=== PATIENT | female | born 2000 | race American Indian/Alaskan Native ===

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

== ENCOUNTER 2021-11-16 19:44 | Emergency (ER) | payer MEDICAID, OTHER, SELFPAY ==
[2021-11-16 20:03] VITALS: BP 139/78; PULSE 78; RESP 20; TEMP 36.6; O2SAT 98
--- NOTE | 2021-11-16 20:12 | DI.RAD.S_ITS ---
PROCEDURE: XR ANKLE RT MIN 3V INDICATIONS: rolled ankle TECHNIQUE: 3 views of the ankle were acquired. COMPARISON: None. FINDINGS: Bones: No fracture or dislocation. Ankle mortise demonstrates preserved alignment. Soft tissues: There is a small joint effusion. Soft tissue swelling is demonstrated laterally. Achilles tendon appears normal. IMPRESSION: 1. No fracture or dislocation. Dictated by: Benson Concepcion M.D. on 11/16/2021 at 21:03 Approved by: Benson Concepcion M.D. on 11/16/2021 at 21:15
--- NOTE | 2021-11-16 22:27 | ED.LOWEXIN ---
HPI - Extremity Injury (Lower) General Chief Complaint: Extremity Injury, Lower Stated Complaint: RT ANKLE INJURY Time Seen by Provider: 11/16/21 22:27 Source: patient Mode of arrival: Wheelchair History of Present Illness HPI Narrative: 21 year old Female who presents with right ankle pain. She tripped over a hose earlier this evening unable to bear weight. She is tender on the lateral side. No numbness tingling or weakness. Related Data Allergies Allergy/AdvReac Type Severity Reaction Status Date / Time No Known Drug Allergies Allergy Unverified 07/03/18 15:42 Review of Systems Review of Systems Narrative: GENERAL: Denies chills,fever HEENT: Denies throat pain RESPIRATORY: Denies dyspnea, cough, wheezing CARDIOVASCULAR: Denies chest pain, palpitations GASTROINTESTINAL: Denies nausea, vomiting MUSCULOSKELETAL: See HPI SKIN: No rash, no laceration, no pruritus NEUROLOGIC: Denies weakness, dizziness, headache, numbness 8 point review of systems is negative except for those stated above and HPI Patient History Social History details: LAHW mom, dad, siblings age (19, 18, 11, 4mo), outdoor cat, smokers outside Smoking Status: Never smoker Smoking Status: Never smoker Exam Initial Vital Signs Initial Vital Signs: Vital Signs Temperature 98 F 11/16/21 20:03 Pulse Rate 78 11/16/21 20:03 Respiratory Rate 20 11/16/21 20:03 Blood Pressure 139/78 11/16/21 20:03 Pulse Oximetry 98 11/16/21 20:03 GENERAL: Well-appearing, well-nourished and in no acute distress. CARDIOVASCULAR: peripheral pulses in tact, cap refill <2 sec RESPIRATORY: No respiratory distress, speaks in full sentences without difficulty EXTREMITIES: Normal range of motion, no clubbing or edema. Neurovascularly intact Right ankle tender and swollen over the lateral malleoli the ankle is stable Achilles intact distal pedal pulse intact. NEUROLOGICAL: Cranial nerves II through XII grossly intact. Normal gait and speech. SKIN: Warm, dry, no petechiae, no rashes or lesions. Course Orders Ordered: ED Orders 11/16/21 20:12 XR ankle RT min 3V Stat Vital Signs Vital signs: Vital Signs - 8 hr 11/16/21 20:03 Temperature 98 F Pulse Rate 78 Respiratory Rate 20 Blood Pressure 139/78 Pulse Oximetry 98 MDM - Extremity Injury (Lower) Imaging Data Extremity x-ray #1: Radiologist's Impression: PROCEDURE:? XR ANKLE RT MIN 3V ? INDICATIONS:? rolled ankle ? TECHNIQUE:? 3 views of the ankle were acquired.? ? COMPARISON:? None. ? FINDINGS:? ? Bones:? No fracture or dislocation.? Ankle mortise demonstrates preserved alignment. ? Soft tissues:? There is a small joint effusion.? Soft tissue swelling is demonstrated laterally.? Achilles tendon appears normal.? ? IMPRESSION:? ? 1. No fracture or dislocation.? ? ? Dictated by: Benson Concepcion M.D. on 11/16/2021 at 21:03 ? ? MDM Narrative Medical decision making narrative: Patient has some mild swelling she is given crutches and instructed on home care. Discharge Plan Departure Patient Disposition: Home Clinical Impression: Right ankle sprain Instructions: DI for Ankle Sprain Activity Restrictions/Additional Instructions: *You have been diagnosed with right ankle sprain *What to do: Use crutches as needed. The Randall wrap if it feels better. May weightbear as tolerated. Ice 20-30 minutes at a time *Continue to take medications as directed Ibuprofen 600 mg every 6-8 hours if needed for [id number] pain *Follow up with your primary care provider in 2-3 days or call [phone] *Return to ER if you should have increasing pain swelling or any new, worsening or concerning symptoms
== END 2021-11-16 23:24 | disposition home or self-care (01) ==
PROVIDERS: Emergency Provider Emergency Medicine
DX: S93.401A Sprain of unspecified ligament of right ankle, initial encounter (principal); W01.0XXA Fall on same level from slipping, tripping and stumbling without subsequent striking against object, initial encounter
CPT/HCPCS: 73610; 99283

== ENCOUNTER 2023-04-22 19:21 | Emergency (ER) | payer MEDICAID, OTHER, SELFPAY ==
[2023-04-22 19:24] VITALS: BP 133/63; PULSE 95; RESP 18; TEMP 36.8; O2SAT 100
--- NOTE | 2023-04-22 19:46 | ED.ANIMALBIT ---
HPI - Animal Bite General Chief Complaint: Animal Bite Stated Complaint: Dog bite Time Seen by Provider: 04/22/23 19:43 Source: patient Mode of arrival: Ambulatory History of Present Illness HPI narrative: Patient is a 22-year-old female who earlier today was bit on the back of the right ankle by a dog. She states she does not know the heating equipment installer of the dog but it was a domesticated dog. Patient states she is not up-to-date on her tetanus. Related Data Allergies Allergy/AdvReac Type Severity Reaction Status Date / Time No Known Drug Allergies Allergy Unverified 07/03/18 15:42 Review of Systems Musculoskeletal Musculoskeletal: Reports system reviewed and no additional complaints, except as documented Integumentary/Breasts Skin/Breast: Reports system reviewed and no additional complaints, except as documented Patient History Social History details: LAHW mom, dad, siblings age (19, 18, 11, 4mo), outdoor cat, smokers outside Smoking Status: Never smoker Smoking Status: Never smoker Substance Use Type: does not use Exam Initial Vital Signs Initial Vital Signs: Vital Signs Temperature 98.3 F 04/22/23 19:24 Pulse Rate 95 H 04/22/23 19:24 Respiratory Rate 18 04/22/23 19:24 Blood Pressure 133/63 04/22/23 19:24 Pulse Oximetry 100 04/22/23 19:24 Oxygen Delivery Method Room Air 04/22/23 19:24 Skin Other: Very superficial abrasion to the back of the right ankle. There is no bleeding. There are no breaks in the skin other than superficial abrasion Neuro Sensory Exam: no sensory deficits noted Extrem General: normal to inspection Course Orders Ordered: Discontinued Medications Bacitracin (Bacitracin Oint 0.9 Gm Pckt) 1 applic TOP NOW ONE Stop: 04/22/23 19:47 Diphtheria/Tetanus/Acell Pertussis (Tet,Diph,Pertuss(Acell),Vac/Pf 0.5 Ml Syringe) 0.5 ml IM .ONCE ONE Stop: 04/22/23 19:32 Last Admin: 04/22/23 19:51 Dose: 0.5 ml Documented By: LIV Vital Signs Vital signs: Vital Signs - 8 hr 04/22/23 19:24 Temperature 98.3 F Pulse Rate 95 H Respiratory Rate 18 Blood Pressure 133/63 Pulse Oximetry 100 Oxygen Delivery Method Room Air MDM - Animal Bite MDM Narrative Medical decision making narrative: Very superficial abrasion. No puncture coburn. No indication for x-rays. Her tetanus was updated. No indication for rabies. No indication for antibiotics other than topical. Provided reassurance the patient. She was given return precautions. She expressed understanding and agreement. Discharge Plan Departure Patient Disposition: Home Clinical Impression: Bite by animal Instructions: DI for Dog Bite Activity Restrictions/Additional Instructions: Your tetanus was updated today. You can continue to put topical antibiotic ointment over the area. You can shower like normal. Return to the emergency department for new symptoms. Stand Alone Forms: Patient Portal/API
[2023-04-22] MEDS: TET,DIPH,PERTUSS(ACELL),VAC/PF 0.5 ML SYRINGE IM (19:51)
== END 2023-04-22 20:02 | disposition home or self-care (01) ==
PROVIDERS: Emergency Provider Emergency Medicine
DX: S91.051A Open bite, right ankle, initial encounter (principal); W54.0XXA Bitten by dog, initial encounter; Z23 Encounter for immunization
CPT/HCPCS: 90471; 99283; 90715

== ENCOUNTER 2023-10-17 15:45 | Emergency (ER) | payer MEDICAID, OTHER, SELFPAY ==
[2023-10-17 16:07] VITALS: BP 149/65; PULSE 78; RESP 16; TEMP 36.3; O2SAT 99; BMI 43.2
== END 2023-10-17 20:01 | disposition left against medical advice (07) ==
PROVIDERS: Emergency Provider Emergency Medicine
DX: R07.9 Chest pain, unspecified (principal)
CPT/HCPCS: 99281